=== PATIENT | male | born 1985 | race Caucasian/White ===

== ENCOUNTER 2021-12-24 10:11 | Day surgery (SDC) | payer OTHER ==
[~2021-12-24] VITALS: Ht 162.6 cm; Wt 153.2 kg
[~2021-12-24 10:11] MED LIST: GABA-1181 PO; METO25 PO; OMEP20 PO; SODIUM CHLORIDE 0.9% 1,000 ML IV ONE; SODIUM CHLORIDE 0.9% 1,000 ML ONE
[2021-12-24] MEDS ORDERED: LIDOCAINE/PF 2% 5 ML VIAL IM ONE (12:00)
[2021-12-24] MEDS ORDERED: PROPOFOL 1% 20 ML VIAL IVP ONE (12:00)
[2021-12-24 12:11] LABS: COVID AG,FIA SOURCE NASAL SWAB
== END 2021-12-24 14:25 | disposition home or self-care (01) ==
LOC: SURGERY 10:11
PROVIDERS: ATTEND Internal Medicine Gastroenterology
DX: D64.9 Anemia, unspecified (principal); K63.5 Polyp of colon; K63.89 Other specified diseases of intestine; K64.0 First degree hemorrhoids; K76.9 Liver disease, unspecified; I10 Essential (primary) hypertension; G47.30 Sleep apnea, unspecified; K70.30 Alcoholic cirrhosis of liver without ascites; Z87.01 Personal history of pneumonia (recurrent); Z79.899 Other long term (current) drug therapy; Z98.890 Other specified postprocedural states
CPT/HCPCS: 45385; 45380; 87426; 88305; C1769; J2704; J3490; J7030; C9803

== ENCOUNTER 2022-08-12 07:55 | Day surgery (SDC) | payer OTHER ==
[~2022-08-12] VITALS: Ht 165.1 cm; Wt 152.9 kg
[~2022-08-12 07:55] MED LIST changes: +CALC-1124 PO; +CHOL500043 PO; +FERR325T27 PO; +LACT10SO10 PO; +SEMA1PEN5 SQ; -SODIUM CHLORIDE 0.9% 1,000 ML IV ONE
[2022-08-12] MEDS ORDERED: LIDOCAINE/PF 2% 5 ML SYRINGE IVP ONE (07:56)
[2022-08-12] MEDS ORDERED: PROPOFOL 1% 20 ML VIAL IVP ONE (07:56)
[2022-08-12] MEDS ORDERED: SODIUM CHLORIDE 0.9% 1,000 ML IV ONE (08:00)
[2022-08-12 08:44] LABS: COVID AG,FIA SOURCE NASAL SWAB
[2022-08-12] MEDS ORDERED: OXYGEN THERAPY IH SCH (20:00)
== END 2022-08-12 11:30 | disposition home or self-care (01) ==
LOC: SURGERY 07:55
PROVIDERS: ATTEND Specialist
DX: K29.70 Gastritis, unspecified, without bleeding (principal); D64.9 Anemia, unspecified; Z87.01 Personal history of pneumonia (recurrent); I10 Essential (primary) hypertension; E66.01 Morbid (severe) obesity due to excess calories; K70.31 Alcoholic cirrhosis of liver with ascites; D50.9 Iron deficiency anemia, unspecified; K59.09 Other constipation; Z20.822 Contact with and (suspected) exposure to COVID-19; Z79.899 Other long term (current) drug therapy
CPT/HCPCS: 43239; 87426; C9803; C1769; J2704; J3490; J7030; 88305; 88312; 88313